=== PATIENT | female | born 1960 | race Caucasian/White ===

== ENCOUNTER 2023-07-17 09:53 | Outpatient (REF) | payer OTHER, SELFPAY ==
--- NOTE | ~2023-07-17 | XR_ITS ---
EXAMINATION: XR PELVIS XR HIP, LEFT CLINICAL INFORMATION: Pain in the hip. COMPARISON: None available. TECHNIQUE: AP pelvis and cross-table lateral view of the left hip. FINDINGS: LEFT HIP: Left total hip arthroplasty noted with the components in the usual position. No periprosthetic fracture or suspicious area of lucency. PELVIS: Left hip as above. Right hip, sacroiliac joints and symphysis pubis are normal. Multiple calcific densities in the pelvis, the largest of which measures approximately 3.4 cm, and likely reflect calcified fibroid/calcified fibroids. XR/XR hip LT 1V IMPRESSION: Left total hip arthroplasty without complication by x-ray. Pelvis unremarkable except for for incidental findings as above.
--- NOTE | ~2023-07-17 | XR_ITS ---
EXAMINATION: XR PELVIS XR HIP, LEFT CLINICAL INFORMATION: Pain in the hip. COMPARISON: None available. TECHNIQUE: AP pelvis and cross-table lateral view of the left hip. FINDINGS: LEFT HIP: Left total hip arthroplasty noted with the components in the usual position. No periprosthetic fracture or suspicious area of lucency. PELVIS: Left hip as above. Right hip, sacroiliac joints and symphysis pubis are normal. Multiple calcific densities in the pelvis, the largest of which measures approximately 3.4 cm, and likely reflect calcified fibroid/calcified fibroids. XR/XR pelvis 1-2V IMPRESSION: Left total hip arthroplasty without complication by x-ray. Pelvis unremarkable except for for incidental findings as above.
== END 2023-07-17 09:54 | disposition home or self-care (01) ==
LOC: HO.HOSX 09:53
PROVIDERS: Visit Provider Orthopaedic Surgery
DX: Z96.642 Presence of left artificial hip joint (principal); M21.70 Unequal limb length (acquired), unspecified site
CPT/HCPCS: 72170; 73501

== ENCOUNTER 2023-07-17 09:56 | Outpatient (AMB) | payer OTHER, SELFPAY ==
--- NOTE | 2023-07-17 10:05 | A.OFFVIS_ITS ---
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 She is s/p Left ABRAHAM 12/17/[address] Hope. Patient reports that she feels the hip is not healing as it should be. She was seen with Dr. Hope who told her that she was healed but she feels otherwise. She explains that she is having pain in the groin and has buckling of the knee that happens mostly while getting out of bed. She is taking tylenol and ibuprofen daily which she doesnt feel that she should be taking daily at this point. She explains that what she feels could be normal but she just has not had much direction from the previous surgeons office. 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 She says she does not feel like she is healing well but she is unsure what exactly is normal following the surgery. She complains of pain in her groin as well as buckling of her left knee, and occasionally she has difficulty weight-bearing. She says the pain radiates from her groin down the front of her leg into her knee. She says she takes daily Tylenol & Ibuprofen and pushes through pain for daily activities. She feels she cannot go out for a walk due to her pain, but she is able to perform most at-home exercises. She walks with a limp and reports she was told she had a leg length discrepancy following her ABRAHAM. She wears a 5/8 shoe lift in her right shoe. The more she walks the more pain she has in her leg. She denies any numbness or tingling. She says when her pain is very severe or unmanageable she takes a Tramadol, but this is not frequent. 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 Review of Systems Const All systems reviewed & are unremarkable except as noted in HPI and below Physical Exam Const General: no acute distress, alert and awake Orientation/consciousness: patient oriented x3 HEENT Head: Yes normocephalic and Yes atraumatic Eyes EOM: EOMs intact bilaterally Resp Effort & Inspection: normal respiratory effort and able to speak in complete sentences Cardio Jugular venous distension: no JVD Skin General skin exam: turgor normal Rashes: no rashes Neuro General: patient oriented x3 Extrem Other: Left Hip: Well-healed incision mild + impingement LLD R> L Trendelenberg gait Psych Appearance: grossly normal Affect: normal affect Attitude: cooperative Results Reviewed Results Reviewed: I personally reviewed relevant radiographs. LLD 1.5cm Assessment & Plan Assessment & Plan (1) Leg length discrepancy: Code(s): M21.70 - Unequal limb length (acquired), unspecified site Plan: This is a 63 year old woman with a leg length discrepancy & pain, S/P left ABRAHAM, DOS: 12/17/22 at an outside clinic. She has pain with weight-bearing activities, radiating down the anterior of her thigh towards her knee. She ambulates with a limp and feels limited in her ADLs by her pain. Currently wearing a 5/8 shoe lift in her right shoe. She manages her pain with daily Tylenol & Advil, and an occasional Tramadol when her pain is severe. I reviewed her radiogrpahs with her. I discussed surgical options. I do not recommend surgery to correct her leg-length as the risks outweigh the benefits. I recommend she continue to wear her shoe lift, PT, and practice ambulation barefoot occasionally. I ordered PT for her, she will follow up prn. (2) History of total left hip arthroplasty: Code(s): Z96.642 - Presence of left artificial hip joint Plan Scribed for Milan Shin MD by Lucas Blanton, medical coordinator pesticide use, on 07/17/23 at 11:15 AM, EST. Orders: Orders XR pelvis 1-2V 07/17/23 M25.559 - Pain in unspecified hip XR hip LT 1V 07/17/23 M25.552 - Pain in left hip PT Evaluation and Treatment 07/17/23 M21.70 - Unequal limb length (acquired), unspecified site, Z96.642 - Presence of left artificial hip joint Coding Level of Care Code New Pt Level 4 (29735) Diagnoses Leg length discrepancy M21.70 History of total left hip arthroplasty Z96.642
== END 2023-07-17 11:24 | disposition home or self-care (01) ==
PROVIDERS: PCP Family Medicine; Visit Provider Orthopaedic Surgery
DX: M21.70 Unequal limb length (acquired), unspecified site (principal); Z96.642 Presence of left artificial hip joint
CPT/HCPCS: 99203